=== PATIENT | female | born 1985 | race Caucasian/White ===

== ENCOUNTER 2016-08-13 15:12 | Outpatient (RCR) | payer BC ==
[~2016-08-13 15:12] MED LIST: DCS100C PO; FERR-57 PO; HYDR1TAB PO; IBP600T1 PO; ONDA8TAB9 PO; PREN1TAB39 PO; PROM25SU10 RC
--- OUTSIDE RECORDS SUMMARY | 2016-08-13 15:15 | XMS REPORT | Continuity of Care Document ---
Author Author [facility] Organization [facility] Address Unknown Phone Unavailable Care Team Providers Care Osteopathic Neurologist Name Role Phone Juhi Frazier III PCP [phone] Source Comments Some departments are not documenting in the electronic medical record. If you do not see the information that you expected, contact Release of Information in the Health Information Management department at [phone] for further assistance in locating additional records.[facility] Active Allergies and Adverse Reactions Allergen Noted Date Severity Reactions Comments Levaquin 11/11/2013 HIVES Has tolerated oral form, but got welts on arm where infused during a hospital stay Current Medications Prescription Sig. Disp. Refills Start End Date Status Date TOPIRAMATE (TOPAMAX PO) Take 5 mg by mouth daily. Active cetirizine (ZYRTEC) 10 mg Take 10 mg by mouth Active tablet daily. phentermine(+) 37.5 mg Take 37.5 mg by mouth Active tablet every morning. Patient takes 1/2 tab occasionally ibuprofen (MOTRIN) 400 mg Take 400 mg by mouth as Active tablet Needed. PSYLLIUM SEED (WITH Take by mouth daily. Active SUGAR) (FIBER SUPPLEMENT PO) Active Problems Problem Noted Date Hypoglycemia 11/11/2013 S/P cholecystectomy 11/11/2013 Overview: 12/08 Social History Tobacco Use Types Packs/Day Years Used Date Never Smoker Alcohol Use Drinks/Week oz/Week Comments No Last Filed Vital Signs Vital Sign Reading Time Taken Blood Pressure 118/77 11/11/2013 9:36 AM [employer] Pulse 60 11/11/2013 9:36 AM [employer] Temperature 36.6 C (97.8 F) 11/11/2013 9:36 AM [employer] Respiratory Rate 14 11/11/2013 9:36 AM [employer] Height 1.626 m (5' 4") 11/11/2013 9:36 AM [employer] Weight 72.757 kg (160 lb 6.4 oz) 11/11/2013 9:36 AM [employer] Body Mass Index 27.52 11/11/2013 9:36 AM [employer] Oxygen Saturation - - Plan of Care Health Maintenance Due Date Last Done Comments Physical (Comprehensive) 1990 Exam Pertussis Vaccine 1994 Tetanus Vaccine 2000 Cervical Cancer Screening 2004 Influenza Vaccine 05/31/2016 Results from Last 3 Months Not on file
[2016-08-13 15:49] LABS: BASOPHILS % (AUTO) 1 % (0-10); EOSINOPHILS # (AUTO) 0.1 10^3/uL (0.0-0.3); EOSINOPHILS % (AUTO) 1 % (0-10); LYMPHOCYTES # (AUTO) 2.5 X 10^3 (1.0-4.0); LYMPHOCYTES % (AUTO) 28 % (12-44); MEAN CORPUSCULAR HEMOGLOBIN 31 PG (25-34); MEAN CORPUSCULAR HGB CONC 34 G/DL (32-36); MEAN CORPUSCULAR VOLUME 93 FL (80-99); MEAN PLATELET VOLUME 10.6 FL (7.4-10.4); MONOCYTES # (AUTO) 0.6 X 10^3 (0.0-1.0); MONOCYTES % (AUTO) 7 % (0-12); NEUTROPHILS # (AUTO) 5.5 X 10^3 (1.8-7.8); NEUTROPHILS % (AUTO) 63 % (42-75); PLATELET COUNT 295 10^3/uL (130-400); RED BLOOD COUNT 4.38 10^6/uL (4.35-5.85); WHITE BLOOD COUNT 8.7 10^3/uL (4.3-11.0)
[2016-08-13 16:13] LABS: ALANINE AMINOTRANSFERASE 23 U/L (0-55); ALBUMIN 4.6 G/DL (3.2-4.5); ANION GAP 11 MMOL/L (5-14); ASPARTATE AMINO TRANSFERASE 20 U/L (5-34); BILIRUBIN,TOTAL 0.6 MG/DL (0.1-1.0); BLOOD UREA NITROGEN 14 MG/DL (7-18); BUN/CREATININE RATIO 17; CALCIUM 9.4 MG/DL (8.5-10.1); CARBON DIOXIDE 24 MMOL/L (21-32); CHLORIDE 104 MMOL/L (98-107); CREATININE SERUM 0.82 MG/DL (0.60-1.30); GFR ESTIMATED > 60; GLUCOSE 86 MG/DL (70-105); POTASSIUM 3.8 MMOL/L (3.6-5.0); SODIUM 139 MMOL/L (135-145); TOTAL PROTEIN 7.8 G/DL (6.4-8.2)
[2016-08-13 21:22] LABS: %SAT TOTAL IRON BINDING CAPIC 11 % (15-50); TIBC 412 ug/dL (280-380)
[2016-08-14 07:04] LABS: FERRITIN 28 ng/mL (15-150); UIBC 365 ug/dL (55-450)
== END 2016-11-11 | disposition home or self-care (01) ==
LOC: ONC 15:12
PROVIDERS: ATTEND Internal Medicine Hematology & Oncology
DX: D50.9 Iron deficiency anemia, unspecified (principal); K21.9 Gastro-esophageal reflux disease without esophagitis; K44.9 Diaphragmatic hernia without obstruction or gangrene
CPT/HCPCS: 36415; 80053; 82728; 83540; 85025; 99213